=== PATIENT | female | born 1960 | race Caucasian/White ===

== ENCOUNTER 2017-04-19 12:16 | Emergency (ER) | payer MEDICAID ==
[2017-04-19 12:23] VITALS: RESP 15; O2SAT 95
--- NOTE | 2017-04-19 15:07 | EDPHY ---
H & P Time Seen by Provider: 04/19/17 14:54 HPI/ROS: CHIEF COMPLAINT: Left knee injury HISTORY OF PRESENT ILLNESS: 57-year-old female presents to the emergency department by private vehicle with concerns about injury to her left knee. The patient states yesterday she was helping someone move and she fell into a window well and landed on her left foot and twisted her left knee. She did not hit her head or lose consciousness. Denies neck or back pain. Denies chest pain or difficulty breathing. Denies any other trauma or injury. She has pain isolated to her left knee especially with range of motion and especially with extension. ROS: Denies numbness or tingling in her toes, pain in her left ankle or left hip. Past Medical/Surgical History: Hypothyroidism, hysterectomy Social History: Divorce and lives in [place] Smoking Status: Current every day smoker Physical Exam: Examination left knee reveals no effusion. She has pain with full extension of the left knee. Nontender to palpate the lateral or medial joint line of the left knee. No palpable crepitus or other bony abnormality. No obvious ligament instability. She has limited flexion secondary to pain. Nontender to palpate in the left thigh or left calf. Nontender to palpate the left ankle. Normal sensation to light touch with normal 2 point discrimination. Constitutional: Initial Vital Signs Temperature (C) 36.8 C 04/19/17 12:21 Heart Rate 84 04/19/17 12:21 Respiratory Rate 15 04/19/17 12:21 Blood Pressure 108/72 04/19/17 12:21 O2 Sat (%) 95 04/19/17 12:21 O2 Delivery Mode Room Air Allergies/Adverse Reactions: No Known Allergies Allergy (Unverified 04/19/17 12:20) Home Medications: Medication Instructions Recorded Abilify 04/19/17 Levothyroxine 04/19/17 Terbinafine 04/19/17 MDM/Departure - MDM Imaging Results: Imaging Impressions Knee X-Ray 04/19/17 12:24 Impression: 1. Bone demineralization. 2. There is no acute fracture identified. 3. Degenerative changes, most pronounced at the lateral patellofemoral femoral joint space. 4. If there is further clinical concern regarding the patient's knee pain, consider MR imaging. Imaging: I viewed and interpreted images myself ED Course/Re-evaluation: 57-year-old female presents to the emergency department with isolated pain to the left knee. X-rays reveal significant degenerative changes without evidence of fractures. Patient was placed in straight leg knee immobilizer and given orthopedic referral. - Depart Disposition: Home, Routine, Self-Care Clinical Impression: Left knee sprain Qualifiers: Encounter type: initial encounter Involved ligament of knee: unspecified ligament Qualified Code(s): S83.92XA - Sprain of unspecified site of left knee, initial encounter Condition: Good Instructions: Knee Sprain (ED) Additional Instructions: Knee immobilizer for comfort and support. Ibuprofen 600 mg every 8 hours as needed for pain. Follow up with orthopedic doctor to recheck in one week. Referrals: Gaurav Ramires MD [Medical Doctor] - 5-7 days, call for appt. (Orthopedic surgeon supervisor quality control)
[2017-04-19 15:28] VITALS: BP 114/71; PULSE 69; TEMP 98.8
== END 2017-04-19 15:28 | disposition home or self-care (01) ==
DX: S83.92XA Sprain of unspecified site of left knee, initial encounter (principal); F17.200 Nicotine dependence, unspecified, uncomplicated; W20.8XXA Other cause of strike by thrown, projected or falling object, initial encounter
CPT/HCPCS: L1830